=== PATIENT | female | born 1980 | race Two or more races ===

== ENCOUNTER 2021-06-01 12:38 | Outpatient (CLI) | payer OTHER ==
[~2021-06-01 12:38] MED LIST: IBUPROFEN800 MG PO; ZITHROMAX500 MG PO
== END 2021-06-01 12:47 | disposition home or self-care (01) ==
LOC: SONOGRAMA 12:38 → MAMO-SONO 13:15
PROVIDERS: ATTEND Specialist
DX: D21.6 Benign neoplasm of connective and other soft tissue of trunk, unspecified (principal); R22.9 Localized swelling, mass and lump, unspecified